=== PATIENT | male | born 1995 | race Caucasian/White ===

== ENCOUNTER 2017-09-09 16:27 | Emergency (ER) | payer SELFPAY, OTHER | END 2017-09-09 21:38 | disposition home or self-care (01) | LOC: FTE 16:27 | DX: S06.0X0A Concussion without loss of consciousness, initial encounter (principal); S20.20XA Contusion of thorax, unspecified, initial encounter; M62.838 Other muscle spasm; M79.9 Soft tissue disorder, unspecified; V49.40XA Driver injured in collision with unspecified motor vehicles in traffic accident, initial encounter | CPT/HCPCS: 70450; 70486; 71046; 99285-25 ==